=== PATIENT | male | born 1980 | race Caucasian/White ===

== ENCOUNTER 2017-03-09 08:20 | Emergency (ER) | payer SELFPAY ==
[2017-03-09 08:29] VITALS: BP 125/78
[2017-03-09] MEDS ORDERED: Ketorolac INJ* 30 MG/ML 1 ML VIAL IM ONE (08:35)
[2017-03-09] MEDS ORDERED: Amoxicillin PO (*) 250 MG CAP PO ONE (08:36)
[2017-03-09] MEDS ORDERED: Amoxicillin PO (*) 500 MG CAP PO ONE (08:36)
--- NOTE | 2017-03-09 08:41 | UC ---
Ear Complaint HPI - HPI Summary HPI Summary: 36 yo male with recent URI presents with a 12 hr hx or 02/15 right ear pain and decreased hearing no f/c - History of Current Complaint Chief Complaint: UCEar Stated Complaint: EAR PAIN Time Seen by Provider: 03/09/17 08:30 Onset/Duration: Gradual Onset, Lasting Hours Severity Initially: Mild Severity Currently: Severe Pain Intensity: 10 Pain Scale Used: 0-10 Numeric Aggravating Factors: Nothing Alleviating Factors: Nothing Associated Signs/Symptoms: Positive: Hearing Loss, URI Symptoms - Allergies/Home Medications Allergies/Adverse Reactions: Allergies Allergy/AdvReac Type Severity Reaction Status Date / Time No Known Allergies Allergy Verified 03/09/17 08:25 PMH/Surg Hx/FS Hx/Imm Hx Previously Healthy: Yes Cardiovascular History: Hypertension - Surgical History Surgical History: None - Family History Known Family History: Positive: Hypertension - Social History Alcohol Use: Rare Substance Use Type: None Smoking Status (MU): Current Some Day Smoker Type: Smokeless Tobacco Amount Used/How Often: 1 can every 2 days Review of Systems Constitutional: Negative Skin: Negative Eyes: Negative ENT: Ear Ache Respiratory: Negative Cardiovascular: Negative Gastrointestinal: Negative Genitourinary: Negative Motor: Negative Neurovascular: Negative Musculoskeletal: Negative Neurological: Negative Psychological: Negative Is Patient Immunocompromised?: No All Other Systems Reviewed And Are Negative: Yes Physical Exam Triage Information Reviewed: Yes Appearance: Well-Appearing, No Pain Distress, Well-Nourished Vital Signs: Initial Vital Signs Temp 97.9 F 03/09/17 08:26 Pulse 82 03/09/17 08:26 Resp 16 03/09/17 08:26 BP 125/78 03/09/17 08:26 Pulse Ox 100 03/09/17 08:26 Eyes: Positive: Conjunctiva Clear ENT: Positive: TM bulging - R, TM red - R, Uvula midline. Negative: Hearing grossly normal, Nasal congestion, Nasal drainage, Tonsillar swelling, Tonsillar exudate, Muffled voice, Hoarse voice, Dental tenderness, Sinus tenderness Neck: Positive: Supple, Nontender, No Lymphadenopathy Respiratory: Positive: Lungs clear, Normal breath sounds, No respiratory distress, No accessory muscle use Cardiovascular: Positive: No Murmur, Pulses Normal Musculoskeletal: Positive: ROM Intact, No Edema Neurological: Positive: Alert Psychological Exam: Normal Skin Exam: Normal Ear Complaint Course/Dx - Differential Dx/Diagnosis Provider Diagnoses: right otitis media Discharge - Discharge Plan Condition: Stable Disposition: HOME Prescriptions: Amoxicillin PO (*) [Amoxicillin 875 MG (*)] 875 mg PO BID #20 tab Patient Education Materials: Otitis Media (ED) Referrals: Afshin Salomon [Primary Care Provider] - 2 Weeks (if hearing not back to normal ) Additional Instructions: advil or tylenol for pain
== END 2017-03-09 09:00 | disposition home or self-care (01) ==
LOC: UCEAST 08:20
DX: H66.91 Otitis media, unspecified, right ear (principal); F17.290 Nicotine dependence, other tobacco product, uncomplicated
CPT/HCPCS: 96372; 99212; A9270-GY; G0463; J1885

== ENCOUNTER 2017-06-04 18:48 | Emergency (ER) | payer SELFPAY ==
[2017-06-04 19:52] VITALS: BP 130/84
--- NOTE | 2017-06-04 20:07 | UC ---
Complaint Male HPI - HPI Summary HPI Summary: Pt presents with urinary pressure, frequency, and burning for 1 week. He tells me that about 2 weeks ago he and his used a lube during sexual intercourse for the first time and he wonders if this is what is causing his current discomfort. He has tried OTC medication for urinary pain that he says is helping. He also has a scattered rash on his buttocks and upper legs that is itchy - worse at night. He said his work has bed bugs. Denies fever, chills, SOB , chest pain, abdominal pain, n/v/d/c, hematuria, fam hx of prostate or colon cancer, rectal pain/bleeding. He has been monogamous with his and is not interested in STD testing. - History of Current Complaint Chief Complaint: UCGU Stated Complaint: POSS UTI Time Seen by Provider: 06/04/17 20:06 Hx Obtained From: Patient Onset/Duration: Gradual Onset Timing: Constant Severity Initially: Moderate Severity Currently: Moderate Pain Intensity: 7 Pain Scale Used: 0-10 Numeric Aggravating Factor(s): Voiding - Allergies/Home Medications Allergies/Adverse Reactions: Allergies Allergy/AdvReac Type Severity Reaction Status Date / Time HAY FEVER Allergy See Comment Uncoded 06/04/17 19:41 Home Medications: Home Medications Ura Calm 1 tab PO DAILY 06/04/17 [History Confirmed 06/04/17] PMH/Surg Hx/FS Hx/Imm Hx Previously Healthy: Yes Psychological History: Anxiety, Depression - Surgical History Surgical History: None - Family History Known Family History: Positive: Hypertension - Social History Occupation: Employed Full-time Lives: With Family Alcohol Use: Rare Substance Use Type: None Smoking Status (MU): Current Some Day Smoker Type: Cigarettes, Smokeless Tobacco Amount Used/How Often: 1 can every 2 days Review of Systems Constitutional: Negative Skin: Negative Respiratory: Negative Cardiovascular: Negative Gastrointestinal: Negative Genitourinary: Dysuria, Frequency, Urgency Motor: Negative Neurovascular: Negative Musculoskeletal: Negative Neurological: Negative Psychological: Negative All Other Systems Reviewed And Are Negative: Yes Physical Exam Triage Information Reviewed: Yes Appearance: Well-Appearing, No Pain Distress, Well-Nourished Vital Signs: Initial Vital Signs Temp 99.9 F 06/04/17 19:45 Pulse 110 06/04/17 19:45 Resp 16 06/04/17 19:45 BP 130/84 01/27/18 19:45 Pulse Ox 98 06/04/17 19:45 Vital Signs Reviewed: Yes Neck: Positive: Supple, Nontender, No Lymphadenopathy Respiratory: Positive: Lungs clear, Normal breath sounds, No respiratory distress, No accessory muscle use Cardiovascular: Positive: RRR, No Murmur, Pulses Normal Abdomen Description: Positive: Nontender, No Organomegaly, Soft. Negative: CVA Tenderness (R), CVA Tenderness (L), Distended, Guarding, McBurney's Point Tenderness Bowel Sounds: Positive: Present Neurological: Positive: Alert Psychological: Positive: Age Appropriate Behavior Skin: Positive: Other - Diffuse and scattered bite-like appearing excoriations on his upper legs and buttocks. No streaking, discharge, bleeding, or surrounding erythema. Complaint Male Course/Dx - Course Course Of Treatment: UTI - Cipro. Bed bugs - permethrin - Differential Dx/Diagnosis Provider Diagnoses: UTI. Bed bugs Discharge - Discharge Plan Condition: Stable Disposition: HOME Prescriptions: Ciprofloxacin TAB* [Cipro 500 MG TAB*] 500 mg PO BID #20 tab Hydrocortisone 1% CREAM* [Hytone Cream 1%*] 1 applic TOPICAL BID #1 tube Permethrin 5% CREAM* 1 applic TOPICAL SEE INSTRUCTIONS #1 tube Patient Education Materials: Epididymitis (ED), Prostatitis (ED), Urinary Tract Infection in Men (ED) Referrals: Maribel POLLARD,Afshin Torres [Primary Care Provider] - Additional Instructions: If you develop a fever, shortness of breath, chest pain, new or worsening symptoms - please call your PCP or go to the ED. Your blood pressure was mildly elevated at todays visit. Please see your primary provider within 4 weeks for recheck and re-evaluation.
[2017-06-04] MEDS ORDERED: Ciprofloxacin TAB* 500 MG PO ONE (20:24)
== END 2017-06-04 20:36 | disposition home or self-care (01) ==
LOC: UCEAST 18:48
DX: N39.0 Urinary tract infection, site not specified (principal); T14.8XXA Other injury of unspecified body region, initial encounter; W57.XXXA Bitten or stung by nonvenomous insect and other nonvenomous arthropods, initial encounter; Y92.9 Unspecified place or not applicable; F17.220 Nicotine dependence, chewing tobacco, uncomplicated
CPT/HCPCS: 81003; 87086; 99212; A9270-GY; G0463

== ENCOUNTER 2018-01-02 09:12 | Inpatient (IN) | payer SELFPAY ==
--- NOTE | 2018-01-02 09:46 | ED ---
Abdominal Pain/Male - HPI Summary HPI Summary: Pt presents w/ RLQ pain radiating into groin/testicles since last night. Stabbing 8/10 pain. Constant but worse at times. Worse this morning when riding on motorcycle to get to work - hitting bumps in road made it much worse. Standing helps. Nausea from pain - denies vomiting. Feels cold - no fever. Tried to move bowels this morning but had a small loose stool which may have had blood in it (typically moves bowels 3-4 x day w/o difficultly). Mild dysuria - denies frequency/urgency or penile d/c or testicular swelling - admits he's had a "lump" in the RT scrotum since youth - unchanged and non- painful today. May have had some Rt flank pain a few days ago but doesn't recall details. No h/o kidney stone/infection. H/o diverticulitis but was on Lt side last time - feels similar in quality. Otherwise healthy - only takes lexapro. Admits he works alot. Last meal - [employer] energy drink at 7:00am today. Last ate at 18:00 last night. - History of Current Complaint Chief Complaint: EDAbdPain Stated Complaint: ABD PAIN Time Seen by Provider: 01/02/18 09:22 Hx Obtained From: Patient Pain Intensity: 8 - Allergies/Home Medications Allergies/Adverse Reactions: Allergies Allergy/AdvReac Type Severity Reaction Status Date / Time No Known Drug Allergies Allergy See Comment Verified 01/04/18 09:32 HAY FEVER Allergy See Comment Uncoded 01/02/18 09:18 PMH/Surg Hx/FS Hx/Imm Hx Previously Healthy: Yes Endocrine/Hematology History: Denies: Hx Anticoagulant Therapy, Hx Blood Disorders, Hx Diabetes, Hx Thyroid Disease, Autoimmune Disease Cardiovascular History: Denies: Hx Hypertension Respiratory History: Denies: Hx Asthma, Hx Chronic Obstructive Pulmonary Disease (COPD) GI History: Reports: Hx Diverticulosis - diverticulitis Denies: Hx Cirrhosis, Hx Crohn's Disease, Hx Gall Bladder Disease, Hx Gastroesophageal Reflux Disease, Hx Gastrointestinal Bleed, Hx Irritable Bowel, Hx Obstructive Bowel, Hx Ulcer History: Denies: Hx Benign Prostatic Hyperplasia, Hx Kidney Infection, Hx Kidney Stones - Immunization History Date of Tetanus Vaccine: UNK Date of Influenza Vaccine: UNK Infectious Disease History: No Infectious Disease History: Denies: Hx Clostridium Difficile, Hx Hepatitis, Hx Human Immunodeficiency Virus (HIV), Hx of Known/Suspected MRSA - son has hx of, Hx Shingles, Hx Tuberculosis, Hx Known/Suspected VRE, Hx Known/Suspected VRSA, History Other Infectious Disease, Traveled Outside the [place] in Last 30 Days - Family History Known Family History: Positive: Hypertension - Social History Occupation: Employed Full-time Alcohol Use: Weekly Hx Substance Use: No Substance Use Type: Reports: None Hx Tobacco Use: Yes Smoking Status (MU): Current Some Day Smoker Type: Cigarettes, Smokeless Tobacco Amount Used/How Often: 1 can every 2 days Review of Systems Constitutional: Negative Positive: Chills, Fatigue. Negative: Fever Eyes: Negative ENT: Negative Cardiovascular: Negative Negative: Chest Pain Respiratory: Negative Negative: Shortness Of Breath Positive: Abdominal Pain, Diarrhea, Nausea. Negative: Vomiting Positive: see HPI Musculoskeletal: Negative Skin: Negative Neurological: Negative Psychological: Normal - concerned but calm All Other Systems Reviewed And Are Negative: Yes Physical Exam Triage Information Reviewed: Yes Vital Signs On Initial Exam: Initial Vitals Temp Pulse Resp BP Pulse Ox 98.5 F 79 18 142/90 99 01/02/18 09:14 01/02/18 09:14 01/02/18 09:14 01/02/18 09:14 01/02/18 09:14 Vital Signs Reviewed: Yes Appearance: Positive: Well-Appearing - appears older than stated age, Well- Nourished, Pain Distress - lying on stretcher, slow to move - abdominal pain - calm, communicative Skin: Positive: Warm, Skin Color Reflects Adequate Perfusion, Dry - no ecchymosis over ab/flanks Head/Face: Positive: Normal Head/Face Inspection Eyes: Positive: Normal, EOMI, Conjunctiva Clear - anicteric sclera ENT: Positive: Normal ENT inspection, Hearing grossly normal, Pharynx normal - musoca moist Neck: Positive: Supple Respiratory/Lung Sounds: Positive: Clear to Auscultation, Breath Sounds Present. Negative: Rales, Rhonchi, Wheezes Cardiovascular: Positive: Normal, RRR, S1, S2. Negative: Murmur, Rub Abdomen Description: Positive: Soft, Distended - mild, Other: - + Rovsing; RLQ q / mild TTP - no rebounding; + obturator; - psoas. Negative: CVA Tenderness (R) , CVA Tenderness (L) Bowel Sounds: Positive: Present Male Genital Exam: Positive: No Hernia. Negative: Epididymal Tenderness - Rt epididymus w/ soft tissue mass - soft, NTTP, mobile (pt notes this has been there for years), Lesions, Scrotum Tenderness (R), Scrotum Tenderness (L), Testicular Tenderness (R), Testicular Tenderness (L), Urethral Discharge Musculoskeletal: Positive: Normal, Strength/ROM Intact Neurological: Positive: Normal, Sensory/Motor Intact, Alert, Oriented to Person Place, Time, CN Intact II-III Psychiatric: Positive: Normal - calm, pleasant Diagnostics - Vital Signs Vital Signs Temp Pulse Resp BP Pulse Ox 01/02/18 09:14 98.5 F 79 18 142/90 99 - Laboratory Result Diagrams: 01/04/18 06:11 01/04/18 06:11 Lab Statement: Any lab studies that have been ordered have been reviewed, and results considered in the medical decision making process. Re-Evaluation - Re-Evaluation First Eval Change: Improved - minimal but brief improvement of pain w/ 4mg morphine - after reviewing CT scan and finding diverticulitis, will try toradol Second Eval Change: Improved - toradol reduced pain but is still present Abdominal Pain Fem Course/Dx - Course Course Of Treatment: Patient presents with acute abdominal pain, most notably in RLQ however he has had some lower abdominal discomfort and possibly right flank pain the past few days. Reports feeling cold today but no fever/rigors and vitals appear to be WNL upon arrival. Labs reveal elevated wbc at 12 w/ Left shift. Renal and liver function appear well other than elevated alk phos ( RUQ NTTP however CT reveals lesions - recommend outpt U/S for further assessment ). CT also reveals sigmoid diverticulitis w/o urianry tract pathology. After further discussion, pt's "dysuria" sounds like it has more to do with space changes/decompression of bladder w/ void which trigger irritation of inflamed colon. Ordered cipro and flagyl but noticed pt's HR increasing as he was here - requested repeat vitals and pt had developed a fever. He then met sepsis criteria so remaining IV fluids were ordered (he had already received 1L - ordered 1500mL wide open). ALso ordered acetaminophen for temp control and comfort. Discussed case w/ Dr. [place] and pt. Pt looks worse than intial presentation - will admit. - Diagnoses Provider Diagnoses: Sigmoid diverticulitis, Sepsis Discharge - Sign-Out/Discharge Documenting (check all that apply): Patient Departure - Discharge Plan Condition: Stable Disposition: ADMITTED TO [facility] - Billing Disposition and Condition Condition: STABLE Disposition: Admitted to [facility]
[2018-01-02] MEDS ORDERED: Ondansetron INJ* 2 MG/ML VIAL IV ONE (10:18)
[2018-01-02] MEDS ORDERED: Morphine INJ* 2 MG/ML 1 ML SYRINGE (TWO MG - NEW SYRINGE VERSION) IV ONE (10:18)
[2018-01-02] MEDS ORDERED: NS 0.9% 1000 ML* 1,000 ML IV ONE ×2 (10:18→14:58)
[2018-01-02 10:33] LABS: ABS Basophils 0 10^3/ul (0-0.2); ABS Eosinophils 0 10^3/ul (0-0.6); ABS Lymphocytes 0.8 10^3/ul (1.0-4.8); ABS Monocytes 0.7 10^3/ul (0-0.8); ABS Nucleated RBC 0 10^3/ul; Eosinophil % 0.3 % (0-6); Hematocrit 46 % (42-52); Hemoglobin 15.9 g/dl (14.0-18.0); Lymphocyte % 6.5 % (25-47); Mean Corpuscular HGB Conc 35 g/dl (31-36); Mean Corpuscular Hemoglobin 30 pg (27-31); Mean Corpuscular Volume 87 fL (80-94); Mean Platelet Volume 8.2 um3 (7.4-10.4); Nucleated Red Blood Cells % 0; Platelet Count 209 10^3/ul (150-450); Red Cell Distribution Width 14 % (10.5-15); White Blood Count 12.7 10^3/ul (3.5-10.8)
[2018-01-02 10:37] LABS: Urine Appearance Clear; Urine Blood Negative (Negative); Urine Color Yellow; Urine Ketones Negative (Negative); Urine Protein Negative (Negative); Urine Specific Gravity 1.023 (1.010-1.030); Urine Urobilinogen Negative (Negative)
[2018-01-02 10:47] LABS: EGFR Non-African American 93.2 (>60)
--- NOTE | 2018-01-02 12:39 | RAD ---
INDICATION: RIGHT lower abdominal pain radiating to the testicles. History of diverticulitis. Bloody diarrhea this morning. Potential urinary tract stone. History of urolithiasis. COMPARISON: April 11, 2012 CT. TECHNIQUE: Multidetector CT images were obtained from the lung bases to the ischial tuberosities. Oral contrast administered. Assessment of the visceral limited without IV contrast. Multiplanar reformation. REPORT: VISUALIZED INFERIOR THORAX: Mild bibasilar dependent atelectasis. LIVER / GALLBLADDER / PANCREAS / SPLEEN: Approximate 6 well-circumscribed low-density hepatic lesions are identified most suspicious for cysts or hemangiomas with sales representative leather goods dominant lesion at the dome of the LEFT hepatic lobe measuring 0.8 cm. Negative for biliary dilatation. No CT abnormality of the normally distended gallbladder. Unremarkable pancreas. Small calcified granulomas at the 14 cm cephalocaudal spleen. ALIMENTARY TRACT: Negative for CT abnormality of the upper GI, small bowel, or retrocecal appendix. Moderately severe perienteric inflammatory change at the proximal to mid sigmoid colon flanking a few discrete diverticula. No definitive extra enteric gas. Trace fluid along the LEFT pelvic sidewall. No perienteric abscess collection evident. Negative for hernias. MESENTERIC: Unremarkable. ADRENAL / GENITOURINARY: Unremarkable adrenal glands. Negative for urolithiasis or hydronephrosis. Unremarkable unenhanced appearance of the kidneys and ureters. The urinary bladder is largely decompressed limiting assessment without gross abnormality. Symmetric seminal vesicles. RETROPERITONEAL: Negative for lymphadenopathy. VASCULAR: Normal diameter abdominal aorta and iliac arteries. Physiologic distention of the IVC. BONES: Negative for suspicious osseous lesions. SOFT TISSUE: Unremarkable. IMPRESSION: #. The constellation of findings is consistent with acute diverticulitis of the sigmoid colon. Negative for associated bowel obstruction or perienteric abscess. No definitive free air evident. Trace fluid along the LEFT pelvic sidewall. Interval follow-up after therapy suggested to assess for resolution of the presumed inflammatory change. #. Noted multiple relative low suspicion focal hepatic lesions are new compared with the 2012 exam however assessment on both exams is limited due to absence of IV contrast. Suggest nonemergent liver ultrasound follow-up for further assessment. #. Negative for urolithiasis or hydronephrosis. #. Mild splenomegaly without significant change.
[2018-01-02] MEDS ORDERED: Ciprofloxacin 400MG IVPREMIX(* 400 MG/200 ML BAG IVPB ONE (13:17)
[2018-01-02] MEDS ORDERED: metroNIDAZOLE IV 500 MG/100ML* 500 MG/100 ML BAG IVPB ONE (13:21)
[2018-01-02] MEDS ORDERED: Ketorolac INJ* 30 MG/ML 1 ML VIAL IV PUSH ONE (13:35)
[2018-01-02] MEDS ORDERED: Acetaminophen TAB* 325 MG PO ONE (14:57)
[2018-01-02] MEDS ORDERED: Morphine INJ* 2 MG/ML 1 ML SYRINGE (TWO MG - NEW SYRINGE VERSION) IV PRN (17:20)
[2018-01-02] MEDS ORDERED: Ondansetron INJ* 2 MG/ML VIAL IV PRN (17:21)
[2018-01-02] MEDS: NS 0.9% 1000 ML* 1,000 ML IV SCH (18:02)
[2018-01-02] MEDS: Acetaminophen TAB* 325 MG PO PRN (19:06)
[2018-01-02] MEDS ORDERED: metroNIDAZOLE IV 500 MG/100ML* 500 MG/100 ML BAG IVPB SCH (20:00)
[2018-01-02] MEDS: Mouth Piece, Nicotine* 1 EACH CARTRIDGE INH PRN (20:22)
[2018-01-02] MEDS: Nicotine GUM* 2 MG PO PRN (20:22)
[2018-01-02] MEDS: Nicotine Inhaler* 10 MG AMP INH PRN (20:22)
--- NOTE | 2018-01-02 21:13 | HP ---
CC: [facility]I Flores * HISTORY AND PHYSICAL: DATE OF ADMISSION: 01/02/18 PRIMARY CARE PROVIDER: NHI Flores ATTENDING PHYSICIAN: Dr. Emily Bhatti * (dictated by Cynthia Duffy NP) CHIEF COMPLAINT: Right lower abdominal pain. HISTORY OF PRESENT ILLNESS: Mr. Moulton is a 37-year-old male with a past medical history significant for diverticulosis and tobacco abuse, who was in his usual state of health when he developed abdominal discomfort last night. The patient states that the pain was in his right lower quadrant radiating into his groin and testicle overnight. He described it is an 8/10 stabbing pain that was constant, but worse at times. This morning, while riding his motorcycle to work , when hitting the bumps, the pain was worsened. If he stood, the pain improved. He is reporting nausea from the pain, but denied any vomiting. He felt cold, but denied fevers. He had a small loose bowel movement this morning. He typically moves his bowels 3 or 4 times a day. Reported mild dysuria, but denied frequency or urgency, penile discharge or testicular swelling. The patient has a known "lump" in his right testicle since youth that is unchanged and nonpainful. The patient has a history of diverticulitis, but the last time his pain was on the left side but the pain feels similar this time. Due to his symptoms, he presented to the emergency room for further evaluation. While in the emergency room, he had labs remarkable for a white blood cell count of 12.7, negative urinalysis, and EKG showing a sinus tachycardia, rate of 102. Initially, the plan was to treat the patient with a dose of IV Cipro and Flagyl, transition him to oral medications, and send him home. He developed a low-grade fever of 100.9. He was noted to be tachycardic meeting SIRS criteria for sepsis. The patient received 2.5 L of normal saline, Zofran, morphine, Toradol, acetaminophen. Hospitalists were asked to evaluate the patient for admission. PAST MEDICAL HISTORY: 1. Diverticulitis. 2. Depression. PAST SURGICAL HISTORY: None. MEDICATIONS: Home medications include Lexapro 7.5 mg oral daily. ALLERGIES: No known drug allergies. FAMILY HISTORY: Denies any family history of coronary artery disease, diabetes , or cancer. SOCIAL HISTORY: The patient uses half a can of smokeless tobacco a day and smokes up to 6 cigarettes daily. He has a 20-year smoking history. He drinks alcohol in the weekends. He denies recreational drugs. His significant other will be his surrogate decision maker in the event he is unable to make decisions for himself. REVIEW OF SYSTEMS: I performed an 11-point review of systems. All the pertinent positives and negatives are mentioned in the history of present illness. The remaining review of systems is negative. PHYSICAL EXAMINATION GENERAL APPEARANCE: The patient is alert, pleasant, appears to be in no acute distress. VITAL SIGNS: Temperature 100.9, heart rate 101, respiratory rate 14, O2 sat 95 % on room air, blood pressure 114/68. HEENT: Normocephalic, atraumatic. Pupils are equal and reactive to light. Extraocular movements are intact. RESPIRATORY: There is no accessory muscle use. The lungs are clear to auscultation, bilateral. CARDIOVASCULAR: Regular rate and rhythm. S1, S2 present. There are no murmurs , rubs, or gallops heard. ABDOMEN: Soft, nondistended. He has diffuse tenderness, more in the right and left lower quadrants. There are bowel sounds present x4. EXTREMITIES: There is no lower extremity edema. DP and PT pulses are 2+ and symmetric. MUSCULOSKELETAL: There is no clubbing or cyanosis noted. The patient exhibits good strength in all extremities. NEUROLOGICAL: The patient is alert and oriented x4. Cranial nerves II through XII are grossly intact. PSYCHOLOGICAL: The patient is calm and cooperative. SKIN: There are no rashes or abnormalities seen. DIAGNOSTIC STUDIES/LAB DATA: Sodium 136, potassium 4.1, chloride 100, CO2 29, BUN 17, creatinine 0.91, glucose 103. Alk phos 117. CRP 36.84. White blood cell count 12.7, hemoglobin 15.9, hematocrit 46, platelet count 209. Urinalysis negative. EKG shows sinus tachycardia, rate of 102, there are no acute signs of ischemia, no previous EKGs for comparison. Abdomen, pelvis CT from today. Radiologist's impression: The constellation of findings is consistent with acute diverticulitis of the sigmoid colon. Negative for associated bowel obstruction or perienteric abscess. No definitive free air evident. Trace fluid along the left pelvic side wall. Interval followup after therapy is suggested to assess for resolution of the presumed inflammatory change. Noted multiple relative low-suspicion focal hepatic lesions are new compared with the 2012 exam; however, assessment on both exams is limited due to the absence of IV contrast, suggests nonemergent liver ultrasound followup for further assessment. Negative for ureterolysis or hydronephrosis. Mild splenomegaly without significant change. IMPRESSION: Mr. Moulton is a 37-year-old male with a past medical history significant for depression, diverticulosis, who presented to the emergency room with complaints of abdominal pain. He will be admitted as an observation for diverticulitis with associated sepsis. ASSESSMENT/PLAN: 1. Diverticulitis with associated sepsis. The patient is meeting systemic inflammatory response syndrome criteria with tachycardia, leukocytosis, and low - grade fever. He does not have an elevated lactic acid at this time. He has already received a 2.5 L fluid bolus in the ED and will be continues on IV fluids. He will be continued on Cipro and Flagyl. Place him on a clear liquid diet. He will have morphine for pain, Zofran available for nausea. I suspect he will improve and be able to advance his diet and transition to oral medications in the next 1 to 2 days. 2. Hepatic lesions. The patient should have a followup liver ultrasound outpatient. I do not feel that this needs to be done emergently while he is inpatient. 3. Depression. I am going to hold the patient's Lexapro tonight. If he is doing well and tolerating a liquid diet, this can be resumed tomorrow. 4. Fluids, electrolytes, and nutrition. Clear liquid diet. 5. Code status. Full code. 6. DVT prophylaxis. He is a low risk. He will be encouraged to ambulate. If he is unable to ambulate, he should have SCDs. 7. Disposition. Observation. TIME SPENT: Time for this admission was approximately 60 minutes, greater than half of that was spent with the patient and his significant other discussing medications, past medical history, the events leading up to his arrival today, performing a physical examination. The case has been reviewed with the attending, Dr. Bhatti, who agrees with the plan of care. Reviewed by LUCÍA MUSA 01/04/18 1427 [id number]/[facility] #: [id number] KWAME
[2018-01-03] MEDS: Ciprofloxacin 400MG IVPREMIX(* 400 MG/200 ML BAG IVPB SCH ×2 (01:55→15:19)
[2018-01-03] MEDS: metroNIDAZOLE IV 500 MG/100ML* 500 MG/100 ML BAG IVPB SCH ×4 (03:13→21:58)
[2018-01-03] MEDS: Acetaminophen TAB* 325 MG PO PRN ×3 (03:17→23:55)
[2018-01-03] MEDS: NS 0.9% 1000 ML* 1,000 ML IV SCH (04:58)
[2018-01-03 05:54] LABS: ABS Basophils 0 10^3/ul (0-0.2); ABS Eosinophils 0 10^3/ul (0-0.6); ABS Lymphocytes 0.9 10^3/ul (1.0-4.8); ABS Monocytes 0.7 10^3/ul (0-0.8); ABS Neutrophils 8.4 10^3/ul (1.5-7.7); ABS Nucleated RBC 0 10^3/ul; Eosinophil % 0.4 % (0-6); Hematocrit 38 % (42-52); Hemoglobin 13.4 g/dl (14.0-18.0); Lymphocyte % 8.5 % (25-47); Mean Corpuscular HGB Conc 35 g/dl (31-36); Mean Corpuscular Hemoglobin 30 pg (27-31); Mean Corpuscular Volume 87 fL (80-94); Mean Platelet Volume 8.6 um3 (7.4-10.4); Nucleated Red Blood Cells % 0.1; Platelet Count 165 10^3/ul (150-450); Red Cell Distribution Width 13 % (10.5-15)
[2018-01-03] MEDS: Nicotine GUM* 2 MG PO PRN (09:45)
[2018-01-03] MEDS: Mouth Piece, Nicotine* 1 EACH CARTRIDGE INH PRN (09:45)
[2018-01-03] MEDS: Nicotine Inhaler* 10 MG AMP INH PRN ×2 (09:46→13:51)
--- NOTE | 2018-01-03 13:12 | PN ---
Subjective Date of Service: 01/03/18 Interval History: Patient reports he feels a little better than when he came in with less abdominal pain and no fever today but still has RLQ pain, and nausea. Denies fever/chills. No diarrhea or constipation. reports some abdominal bloating and gas Objective Active Medications: Acetaminophen (Tylenol Tab*) 650 mg PO Q4H PRN PRN Reason: FEVER/PAIN Last Admin: 01/03/18 03:17 Dose: 650 mg Device (Nicotine Mouth Piece*) 1 each INH .USE WITH NICOTROL PRN PRN Reason: CRAVING Last Admin: 01/03/18 09:45 Dose: 1 each Ciprofloxacin/Dextrose (Cipro 400 Mg Ivpremix(*)) 400 mg in 200 mls @ 200 mls/ hr IVPB Q12H [facility] Last Admin: 01/03/18 01:55 Dose: 200 mls/hr Sodium Chloride (Ns 0.9% 1000 Ml*) 1,000 mls @ 125 mls/hr IV PER RATE [facility] Last Admin: 01/03/18 04:58 Dose: 125 mls/hr Metronidazole/Sodium Chloride (Flagyl 500 Mg Ivpb*) 500 mg in 100 mls @ 100 mls /hr IVPB 0300,0900,1500,2100 [facility] Last Admin: 01/03/18 09:36 Dose: 100 mls/hr Morphine Sulfate (Morphine Inj ((Syringe))*) 2 mg IV Q4H PRN PRN Reason: PAIN Last Admin: 01/02/18 20:28 Dose: 2 mg Nicotine (Nicotine Inhaler*) 10 mg INH Q2H PRN PRN Reason: CRAVING Last Admin: 01/03/18 09:46 Dose: 10 mg Nicotine Polacrilex (Nicotine Gum*) 2 mg PO Q2H PRN PRN Reason: CRAVING Last Admin: 01/03/18 09:45 Dose: 2 mg Ondansetron HCl (Zofran Inj*) 4 mg IV Q6H PRN PRN Reason: NAUSEA Vital Signs - 8 hr 01/03/18 01/03/18 01/03/18 07:51 07:53 11:12 Temperature 98.7 F 98.9 F Pulse Rate 78 80 Respiratory 18 16 18 Rate Blood Pressure 104/63 130/64 (mmHg) O2 Sat by Pulse 97 100 Oximetry Oxygen Devices in Use Now: None Appearance: 37 yo male laying in bed in NAD, A+O x3 Eyes: No Scleral Icterus, PERRLA Ears/Nose/Mouth/Throat: NL Teeth, Lips, Gums, Clear Oropharnyx, Mucous Membranes Moist Neck: NL Appearance and Movements; NL JVP Respiratory: Symmetrical Chest Expansion and Respiratory Effort, Clear to Auscultation Cardiovascular: NL Sounds; No Murmurs; No JVD, RRR, No Edema Abdominal: - - soft, nondistended, RLQ tenderness, no guarding Extremities: No Edema, No Clubbing, Cyanosis Skin: No Rash or Ulcers, No Nodules or Sclerosis Neurological: Alert and Oriented x 3, NL Sensation, NL Gait, NL Muscle Strength and Tone Lines/Tubes/Other Access: Clean, Dry and Intact Peripheral IV Nutrition: Taking PO's Result Diagrams: 01/03/18 04:52 01/02/18 10:03 Assess/Plan/Problems-Billing Assessment: 37 yo male with a PMH significant for depression, hx diverticulosis , IBS who presented to the ER with c/o abdominal pain found to have diverticulitis and met criteria for sepsis - Patient Problems (1) Sepsis Comment: Resolved. Clinically improving but continues to have RLQ pain Secondary to diverticulitis - CT showing acute diverticulilitis of the sigmoid colon Continue Cipro/Flagyl (2) Hepatic lesion Comment: incidental finding on CT will need outpt referral for liver US (3) Tobacco abuse Comment: smoking cessation tobacco replacement (4) DVT prophylaxis Comment: ambulation (5) Full code status Status and Disposition: switch to inpatient for continued IV abx. Tenative DC tomorrow
[2018-01-03] MEDS ORDERED: Loperamide CAP* 2 MG PO PRN (22:57)
[2018-01-03] MEDS: Simethicone TAB* 80 MG TAB.CHEW PO PRN (23:55)
[2018-01-04] MEDS: Ciprofloxacin 400MG IVPREMIX(* 400 MG/200 ML BAG IVPB SCH (01:41)
[2018-01-04] MEDS: metroNIDAZOLE IV 500 MG/100ML* 500 MG/100 ML BAG IVPB SCH ×2 (03:16→08:58)
[2018-01-04 06:17] LABS: ABS Basophils 0 10^3/ul (0-0.2); ABS Eosinophils 0.2 10^3/ul (0-0.6); ABS Lymphocytes 1.2 10^3/ul (1.0-4.8); ABS Monocytes 0.4 10^3/ul (0-0.8); ABS Neutrophils 5.2 10^3/ul (1.5-7.7); ABS Nucleated RBC 0 10^3/ul; Eosinophil % 2.6 % (0-6); Hematocrit 38 % (42-52); Hemoglobin 13.3 g/dl (14.0-18.0); Lymphocyte % 16.5 % (25-47); Mean Corpuscular HGB Conc 35 g/dl (31-36); Mean Corpuscular Hemoglobin 30 pg (27-31); Mean Corpuscular Volume 87 fL (80-94); Mean Platelet Volume 8.1 um3 (7.4-10.4); Nucleated Red Blood Cells % 0; Platelet Count 162 10^3/ul (150-450); Red Cell Distribution Width 13 % (10.5-15)
[2018-01-04 06:36] LABS: EGFR Non-African American 103.7 (>60)
[2018-01-04 08:32] VITALS: BP 106/64
[2018-01-04] MEDS: Simethicone TAB* 80 MG TAB.CHEW PO PRN (09:06)
--- NOTE | 2018-01-04 09:08 | DCNOTE ---
Subjective Date of Service: 01/04/18 Interval History: Patient reports he feels much much better and would like to go home. He reports his abdominal discomfort is no 1/10 with some mild RLQ tenderness. Tolerated diet well. No N/V. Some noted loose stool described as mild but has not noted any blood. Inquired about healthy diet, plans to f/u with PCP and GI as outpatient - discussed noted liver lesions and will require ultrasound as outpt. Objective Active Medications: Acetaminophen (Tylenol Tab*) 650 mg PO Q4H PRN PRN Reason: FEVER/PAIN Last Admin: 01/03/18 23:55 Dose: 650 mg Device (Nicotine Mouth Piece*) 1 each INH .USE WITH NICOTROL PRN PRN Reason: CRAVING Last Admin: 01/03/18 09:45 Dose: 1 each Ciprofloxacin/Dextrose (Cipro 400 Mg Ivpremix(*)) 400 mg in 200 mls @ 200 mls/ hr IVPB Q12H [facility] Last Admin: 01/04/18 01:41 Dose: 200 mls/hr Metronidazole/Sodium Chloride (Flagyl 500 Mg Ivpb*) 500 mg in 100 mls @ 100 mls /hr IVPB 0300,0900,1500,2100 [facility] Last Admin: 01/04/18 08:58 Dose: 100 mls/hr Loperamide HCl (Imodium Cap*) 2 mg PO Q3H PRN PRN Reason: DIARRHEA Last Admin: 01/03/18 23:51 Dose: 2 mg Morphine Sulfate (Morphine Inj ((Syringe))*) 2 mg IV Q4H PRN PRN Reason: PAIN Last Admin: 01/02/18 20:28 Dose: 2 mg Nicotine (Nicotine Inhaler*) 10 mg INH Q2H PRN PRN Reason: CRAVING Last Admin: 01/03/18 13:51 Dose: 10 mg Nicotine Polacrilex (Nicotine Gum*) 2 mg PO Q2H PRN PRN Reason: CRAVING Last Admin: 01/03/18 09:45 Dose: 2 mg Ondansetron HCl (Zofran Inj*) 4 mg IV Q6H PRN PRN Reason: NAUSEA Last Admin: 01/03/18 16:12 Dose: 4 mg Simethicone (Mylicon Tab*) 80 mg PO Q6H PRN PRN Reason: INDIGESTION Last Admin: 01/03/18 23:55 Dose: 80 mg Vital Signs - 8 hr 01/04/18 01/04/18 01/04/18 03:16 04:43 07:14 Temperature 98.1 F 98.6 F Pulse Rate 59 69 Respiratory 14 16 16 Rate Blood Pressure 102/62 106/64 (mmHg) O2 Sat by Pulse 97 97 Oximetry Oxygen Devices in Use Now: None Appearance: well developed 37 yo male laying in bed in NAD A+O x3 Eyes: No Scleral Icterus, PERRLA Ears/Nose/Mouth/Throat: NL Teeth, Lips, Gums, Mucous Membranes Moist Neck: NL Appearance and Movements; NL JVP Respiratory: Symmetrical Chest Expansion and Respiratory Effort, Clear to Auscultation Cardiovascular: NL Sounds; No Murmurs; No JVD, RRR, No Edema Abdominal: - - soft, nondistended, mild tenderness in RLQ - no guarding. Extremities: No Edema, No Clubbing, Cyanosis Skin: No Rash or Ulcers, No Nodules or Sclerosis Neurological: Alert and Oriented x 3, NL Sensation, NL Gait, NL Muscle Strength and Tone Lines/Tubes/Other Access: Clean, Dry and Intact Peripheral IV Nutrition: Taking PO's Result Diagrams: 01/04/18 06:11 01/04/18 06:11 Assess/Plan/Problems-Billing Assessment: 37 yo male with a PMH significant for depression, hx diverticulosis , IBS who presented to the ER with c/o abdominal pain found to have diverticulitis and met criteria for sepsis - Patient Problems (1) Sepsis Comment: Resolved. Clinically improving but continues to have RLQ pain Secondary to diverticulitis - CT showing acute diverticulilitis of the sigmoid colon Continue Cipro/Flagyl as outpatient follow up with PCP this week and GI as outpatient (2) Hepatic lesion Comment: incidental finding on CT - discussed with pt & will need outpt referral for liver US (3) Tobacco abuse Comment: smoking cessation tobacco replacement (4) DVT prophylaxis Comment: ambulation (5) Full code status Status and Disposition: plan for DC to home
[2018-01-04] MEDS ORDERED: Ciprofloxacin TAB* 500 MG PO ONE (11:00)
--- NOTE | 2018-01-04 19:54 | DS ---
CC: [facility] Flores * DISCHARGE SUMMARY: DATE OF ADMISSION: 01/02/18 DATE OF DISCHARGE: 01/04/18 PROVIDER: Ricco Bucio NP ATTENDING PHYSICIAN: Dr. Harper * (report dictated by Ricco Bucio NP) PRIMARY CARE PROVIDER: [facility] Flores DISCHARGE DIAGNOSIS: Acute diverticulitis with sepsis. SECONDARY DIAGNOSES: 1. Tobacco abuse 2. History of diverticulitis, diverticulosis. HISTORY OF PRESENT ILLNESS AND HOSPITAL COURSE: Please see history and physical by Cynthia Arana for full admission details but in summary, this is a 37- year-old male who presented to the emergency department on with complaint for abdominal discomfort starting the night prior, reporting right lower quadrant pain radiating into his groin and testicle overnight, describing an 8/10 stabbing pain that was constant. He also reported nausea from the pain but denied any vomiting. He denied any fevers or chills. He did report of loose bowel movement that morning. In the emergency department, he was found to have an abdominal pelvis CAT scan and impression showing "the constellations of findings were consistent with acute diverticulitis of the sigmoid colon. Negative for associated bowel obstruction or perienteric abscess. No definite free air evident. Trace fluid along the left pelvic sidewall. Interval followup after therapy is suggested to assess for resolution of the presumed inflammatory change. Noted multiple relative low suspicion for focal hepatic lesions are new compared to the 2012 exam; however, assessment of both exams is limited due to the absence of IV contrast, suggest nonemergent liver ultrasound and followup for further assessment. Negative for or hydronephrosis. Mild splenomegaly without significant change." The patient was admitted to the surgical unit where he was started on IV Flagyl and ciprofloxacin. He has dramatically improved over his hospital course and is stable for discharge home this morning. The patient is asking for discharge home reporting that his pain is much decreased to the right lower quad but still does have some mild noted pain in that right lower quad. He reports some loose stool but denies any bloody bowel movements. He has been tolerating his diet well and will be discussed on discharge to slowly advance his diet starting with soft foods, also along with cooked rice and cooked vegetables. We discussed worsening signs and symptoms and when to return to the emergency department. The patient initially presented with leukocytosis of 12.7, which resolved the day after admission. His initial CRP was 36.84 elevating to 208 today. However , on clinical exam and evaluation, he is much improved over his hospital course and there is no reason to keep him hospitalized. He will continue on oral ciprofloxacin and Flagyl for another 8 days to continue a total course of 10 days. I have discussed with the patient to follow up with his primary care provider at the end of the week and have follow up labs and if he has any worsening signs and symptoms to return to the emergency department. The patient should follow up with customer project manager, Dr. Mccurdy as an outpatient as he will benefit from a colonoscopy. As well, he will need an outpatient liver ultrasound to evaluate the hepatic lesions that were noted on the ultrasound. I have ordered a followup CBC with auto diff, CRP, and a CMP. Please note that his alkaline phosphatase is mildly elevated and this should be followed up on. Otherwise, the patient's labs are unremarkable. He has had a little drop in his hemoglobin and hematocrit since admission of being 15.9 and 46 to 13.3 and 38; however, most likely this is secondary to dilution from IV fluids. His liver enzymes are normal. The patient and I discussed at length healthy diet as well as smoking cessation and he shows interest in changing his dietary habits. DISCHARGE PLAN: 1. Follow up with PCP this week. 2. Follow up with Dr. Mccurdy within 1 month or earliest available appointment for possible colonoscopy. 3. Follow up liver ultrasound as an outpatient to evaluate hepatic lesions noted on the CT scan. 4. As well, the radiologist did recommend a followup CAT scan of his abdomen to evaluate the inflammatory changes; however, this could be considered in discussion with a customer project manager during followup. 5. Labs to be drawn in 2 to 3 days of CBC with auto diff, CMP, and CRP with results to primary care provider. The patient is stable for discharge. TIME SPENT: Approximately 60 minutes were spent on this discharge. RICCO BUCIO NP [id number]/[facility] #: [id number] KWAME
== END 2018-01-04 11:10 | disposition home or self-care (01) | DRG 872 ==
LOC: ED 09:12 → SSU 16:33 → OBSVTOIN 01-03 14:18
PROVIDERS: ADMIT Internal Medicine; ATTEND Hospitalist
DX: A41.9 Sepsis, unspecified organism (principal); K57.32 Diverticulitis of large intestine without perforation or abscess without bleeding; F17.210 Nicotine dependence, cigarettes, uncomplicated; F32.9 Major depressive disorder, single episode, unspecified; K76.9 Liver disease, unspecified; K58.9 Irritable bowel syndrome, unspecified; R16.1 Splenomegaly, not elsewhere classified; Z72.89 Other problems related to lifestyle; Z82.49 Family history of ischemic heart disease and other diseases of the circulatory system
CPT/HCPCS: 36415; 74176; 80048; 80053; 81003; 83605; 83690; 83735; 85025; 86140; 93005; 99284; 99406; A9270-GY; G0378; J0744; J1885; J2270; J2405; J3490

== ENCOUNTER → 2018-09-11 09:57 | Emergency (ER) | payer SELFPAY ==
[~2018-09-11 09:57] MED LIST: Iohexol 300* (CONTRAST) 10 ML SDV IV ONE; Morphine 4 MG/ML VIAL (1 ml) 4 MG/ML VIAL IV ONE; NS 0.9% 1000 ML** 1,000 ML IV ONE; Ondansetron INJ* 2 MG/ML VIAL IV ONE
--- NOTE | 2018-09-11 11:16 | ED ---
Abdominal Pain/Male - HPI Summary HPI Summary: Patient is a 38 y/o M presenting to ED with complaints of lower abdominal pain for the past few weeks with exacerbation and onset of radiation of pain to back yesterday. He endorses some dysuria but denies N/V/D, fever, chills and constipation in the room. However, he endorses increased frequency of bowel movements. PMHx of diverticulitis, he states that he has 3-4 episodes per year. He is a current smoker, reports rare alcohol usage, and endorse marijuana usage. PMHx of anxiety, No PSHx. FMHx of HTN and cardiac disease. On triage, pain is rated 8/10, nothing is noted to aggravate/alleviate Sx. Home medications and allergies are reviewed. - History of Current Complaint Chief Complaint: EDAbdPain Stated Complaint: DIVERTICULITIS PER PT Hx Obtained From: Patient Onset/Duration: Lasting Weeks, Still Present, Worse Since - yesterday Timing: Constant, Lasting Weeks Severity Initially: Moderate Severity Currently: Severe Pain Intensity: 8 Pain Scale Used: 0-10 Numeric - 8/10 Location: Other - lower abdomen Radiates: Yes Radiates to: Back Aggravating Factor(s): Nothing Alleviating Factor(s): Nothing Associated Signs And Symptoms: Positive: Urinary Symptoms - dysuria, Other - NEGATIVE - CHILLS; POSITIVE - INCREASED FREQUENCY OF BOWEL MOVEMENTS. Negative : Fever, Constipation, Nausea, Vomiting, Diarrhea - Allergies/Home Medications Allergies/Adverse Reactions: Allergies Allergy/AdvReac Type Severity Reaction Status Date / Time No Known Drug Allergies Allergy See Comment Verified 01/04/18 09:32 HAY FEVER Allergy See Comment Uncoded 01/02/18 09:18 Home Medications: Home Medications Escitalopram * [Lexapro 10 mg (NF)] 15 mg PO DAILY 09/11/18 [History Confirmed 09/11/18] PMH/Surg Hx/FS Hx/Imm Hx Endocrine/Hematology History: Denies: Hx Anticoagulant Therapy, Hx Blood Disorders, Hx Diabetes, Hx Thyroid Disease Cardiovascular History: Reports: Other Cardiovascular Problems/Disorders - "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 heartbeat doesn't stay regular" Denies: Hx Hypertension Respiratory History: Denies: Hx Asthma, Hx Chronic Obstructive Pulmonary Disease (COPD) GI History: Reports: Hx Diverticulosis - diverticulitis Denies: Hx Cirrhosis, Hx Crohn's Disease, Hx Gall Bladder Disease, Hx Gastroesophageal Reflux Disease, Hx Gastrointestinal Bleed, Hx Irritable Bowel, Hx Obstructive Bowel, Hx Ulcer History: Denies: Hx Benign Prostatic Hyperplasia, Hx Kidney Infection, Hx Kidney Stones Sensory History: Denies: Hx Contacts or Glasses, Hx Hearing Aid Opthamlomology History: Denies: Hx Contacts or Glasses Psychiatric History: Reports: Hx Anxiety - Immunization History Date of Tetanus Vaccine: UNK Date of Influenza Vaccine: UNK Infectious Disease History: No Infectious Disease History: Denies: Hx Clostridium Difficile, Hx Hepatitis, Hx Human Immunodeficiency Virus (HIV), Hx of Known/Suspected MRSA - son has hx of, Hx Shingles, Hx Tuberculosis, Hx Known/Suspected VRE, Hx Known/Suspected VRSA, History Other Infectious Disease, Traveled Outside the [place] in Last 30 Days - Family History Known Family History: Positive: Cardiac Disease, Hypertension - Social History Alcohol Use: Weekly Alcohol Amount: "on the weekends, but not a lot" - pt confirms ~a six-pack on weekends Hx Substance Use: No Substance Use Type: Reports: Marijuana Substance Use Comment - Amount & Last Used: "I smoked a little bit this last weekend for the first time since my teens" Hx Tobacco Use: Yes Smoking Status (MU): Current Some Day Smoker Type: Cigarettes, Smokeless Tobacco Amount Used/How Often: 1 can every 2 days Have You Smoked in the Last Year: Yes Review of Systems Negative: Fever, Chills Positive: Abdominal Pain. Negative: Vomiting, Diarrhea, Nausea Genitourinary: Other - NEGATIVE - CONSTIPATION Positive: dysuria, frequency - INCREASED FREQUENCY OF BOWEL MOVEMENTS All Other Systems Reviewed And Are Negative: Yes Physical Exam - Summary Physical Exam Summary: VITAL SIGNS: Reviewed. GENERAL: Patient is a well-developed and nourished male who is lying comfortable in the stretcher. Patient is not in any acute respiratory distress. HEAD AND FACE: No signs of trauma. No ecchymosis, hematomas or skull depressions. No sinus tenderness. EYES: PERRLA, EOMI x 2, No injected conjunctiva, no nystagmus. EARS: Hearing grossly intact. Ear canals and tympanic membranes are within normal limits. MOUTH: Oropharynx within normal limits. NECK: Supple, trachea is midline, no adenopathy, no JVD, no carotid bruit, no c- spine tenderness, neck with full ROM. CHEST: Symmetric, no tenderness at palpation LUNGS: Clear to auscultation bilaterally. No wheezing or crackles. CVS: Regular rate and rhythm, S1 and S2 present, no murmurs or gallops appreciated. ABDOMEN: Soft, LLQ tenderness. No signs of distention. No rebound no guarding, and no masses palpated. Bowel sounds are normal. EXTREMITIES: FROM in all major joints, no edema, no cyanosis or clubbing. NEURO: Alert and oriented x 3. No acute neurological deficits. Speech is normal and follows commands. SKIN: Dry and warm Triage Information Reviewed: Yes Vital Signs On Initial Exam: Initial Vitals Temp Pulse Resp BP Pulse Ox 98.6 F 77 16 143/85 98 09/11/18 10:15 09/11/18 10:15 09/11/18 10:15 09/11/18 10:15 09/11/18 10:15 Vital Signs Reviewed: Yes Diagnostics - Vital Signs Vital Signs Temp Pulse Resp BP Pulse Ox 09/11/18 10:15 98.6 F 77 16 143/85 98 - Laboratory Result Diagrams: 09/11/18 11:21 09/11/18 11:24 Lab Statement: Any lab studies that have been ordered have been reviewed, and results considered in the medical decision making process. - CT abd/pel ct CT Interpretation Completed By: Radiologist Summary of CT Findings: IMPRESSION: #. Unchanged small hepatic cysts. #. Mild splenomegaly and small calcified splenic granulomas without change. #. Moderate colonic diverticulosis without findings of acute diverticulitis. Normal. appendix documented. This report was reviewed by Dr. Villatoro. Re-Evaluation - Re-Evaluation First Eval Re-Evaluation Time: 14:13 Comment: I discussed all the findings and test results with the patient. Patient was instructed to return to the emergency room immediately if any of the symptoms return worsens. Plan of care was discussed with the patient and understands and agrees. Abdominal Pain Male Course/Dx - Course Assessment/Plan: This patient is a 38-year-old male who presents to the emergency department with a chief complaint of abdominal pain which is similar pain as when he has been diagnosed with acute diverticulitis. The patient also has some dysuria for the last couple days. The pain is 8 out of 10 and the patient is not experiencing nausea vomiting or diarrhea. In the ED course we obtained an IV accesses, the patient was given IV fluids, Zofran and morphine for pain. Blood test results without any significant abnormality. Urinalysis is negative for UTI. Abdominopelvic CT IMPRESSION: #. Unchanged small hepatic cysts. #. Mild splenomegaly and small calcified splenic granulomas without change. #. Moderate colonic diverticulosis without findings of acute diverticulitis. Normal. appendix documented. Since the patient has normal WBCs , the CRP is normal, the urine shows no UTI and the abdominopelvic CT shows no diverticulitis the patient will be discharged home with a prescription for pain medications. I discussed all the findings and test results with the patient. Patient was instructed to return to the emergency room immediately if any of the symptoms return worsens. Plan of care was discussed with the patient and understands and agrees. - Diagnoses Provider Diagnoses: Lower abdominal pain Discharge - Sign-Out/Discharge Documenting (check all that apply): Patient Departure - discharge Patient Received Moderate/Deep Sedation with Procedure: No - Discharge Plan Condition: Stable Disposition: HOME Prescriptions: HYDROcodone/ACETAMIN 5-325 MG* [[place] 5-325 TAB*] 1 tab PO Q6H PRN #10 tab MDD 4 PRN Reason: Pain Ibuprofen TAB* [Motrin TAB* 600 MG] 600 mg PO Q8H PRN #20 tab PRN Reason: Pain Patient Education Materials: Abdominal Pain (ED) Referrals: Maribel POLLARD,Afshin Torres [Primary Care Provider] - 3 Days Additional Instructions: RETURN TO ED FOR ANY NEW OR WORSENING SYMPTOMS. FOLLOW UP WITH YOUR PRIMARY CARE PHYSICIAN WITHIN THREE DAYS. - Billing Disposition and Condition Condition: STABLE Disposition: Home - Attestation Statements Document Initiated by Walker: Yes Documenting Scribe: CLOVIS YANEZ Provider For Whom Walker is Documenting (Include Credential): RUSSEL VILLATORO MD Scribe Attestation: CLOVIS Rogel scribed for RUSSEL VILLATORO MD on 09/12/18 at 1050. Scribe Documentation Reviewed: Yes Provider Attestation: The documentation as recorded by the CLOVIS white accurately reflects the service I personally performed and the decisions made by me, RUSSEL VILLATORO MD Status of Scribe Document: Viewed
[2018-09-11 11:44] LABS: ABS Eosinophils 0.1 10^3/ul (0-0.6); ABS Lymphocytes 1.6 10^3/ul (1.0-4.8); ABS Monocytes 0.4 10^3/ul (0-0.8); ABS Neutrophils 6.1 10^3/ul (1.5-7.7); Eosinophil % 0.7 %; Hematocrit 47 % (42-52); Hemoglobin 15.9 g/dL (14.0-18.0); Lymphocyte % 19.7 %; Mean Corpuscular HGB Conc 34 g/dL (31-36); Mean Corpuscular Hemoglobin 30 pg (27-31); Mean Corpuscular Volume 87 fL (80-94); Mean Platelet Volume 8.2 fL (7.4-10.4); Nucleated Red Blood Cells % 0.1; Platelet Count 237 10^3/uL (150-450); Red Blood Count 5.39 10^6 /uL (4.18-5.48); Red Cell Distribution Width 14 % (10.5-15); White Blood Count 8.3 10^3/uL (3.5-10.8)
[2018-09-11 12:01] LABS: Albumin 4.4 g/dL (3.2-5.2); Albumin/Globulin Ratio 1.6 (1-3); BUN/Creatinine Ratio 21.6 (8-20); C Reactive Protein 7.92 mg/L (<8.01); Calcium 9.9 mg/dL (8.6-10.3); EGFR African American 116.7 (>60); EGFR Non-African American 96.4 (>60); Globulin 2.7 g/dL (2-4); Total Bilirubin 0.4 mg/dL (0.2-1.0); Total Protein 7.1 g/dL (6.4-8.9)
[2018-09-11 12:37] LABS: Urine Appearance Clear; Urine Bilirubin Negative (Negative); Urine Blood Negative (Negative); Urine Color Yellow; Urine Glucose Negative (Negative); Urine Ketones Negative (Negative); Urine Nitrite Negative (Negative); Urine Protein Negative (Negative); Urine Urobilinogen Negative (Negative)
[2018-09-11 14:25] VITALS: BP 126/84
== END | disposition home or self-care (01) ==
LOC: ED 09:57
DX: R10.30 Lower abdominal pain, unspecified (principal); R16.1 Splenomegaly, not elsewhere classified; K57.90 Diverticulosis of intestine, part unspecified, without perforation or abscess without bleeding; F41.9 Anxiety disorder, unspecified; F17.210 Nicotine dependence, cigarettes, uncomplicated
CPT/HCPCS: 36415; 74177; 80053; 81003; 82150; 83605; 83690; 85025; 86140; 87491; 87591; 96361; 96374; 96375; 99283; J2270; J2405; Q9967

== ENCOUNTER 2019-05-11 19:26 | Emergency (ER) | payer BC ==
[2019-05-11] MEDS ORDERED: Tetan/Diph/Pertus SYR(Tdap)* 0.5 ML SYR(BOOSTRIX) use SYR contains LATEX IM ONE (19:32)
--- NOTE | 2019-05-11 19:34 | UC ---
Laceration HPI - HPI Summary HPI Summary: 38 yo male presents with finger laceration. 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 He rinsed the area and applied neosporin and continued working. Since that time the are has still been oozing blood and not closing - he is concerned he needs sutures. He is right handed. Unsure date of last tetanus. - History Of Current Complaint Stated Complaint: FINGER LAC Time Seen by Provider: 05/11/19 19:33 Hx Obtained From: Patient Laceration Location: Finger Mechanism Of Injury: Sharp Trauma Onset/Duration: Sudden Onset Severity: Mild Pain Intensity: 3 Pain Scale Used: 0-10 Numeric - Allergies/Home Medications Allergies/Adverse Reactions: Allergies Allergy/AdvReac Type Severity Reaction Status Date / Time No Known Drug Allergies Allergy See Comment Verified 05/11/19 19:45 HAY FEVER Allergy See Comment Uncoded 01/02/18 09:18 Home Medications: Home Medications Azithromyxin NORA (NF) [Z-Nora (Zithromax) 250 mg tabs #6] 250 mg PO DAILY [History Confirmed 05/11/19] PMH/Surg Hx/FS Hx/Imm Hx Psychological History: Anxiety, Depression Other History Of: Negative For: Anticoagulant Therapy - Surgical History Surgical History: None - Family History Known Family History: Positive: Cardiac Disease, Hypertension - Social History Lives: With Family Alcohol Use: Weekly Alcohol Amount: "on the weekends, but not a lot" - pt confirms ~a six-pack on weekends Substance Use Type: Marijuana Substance Use Comment - Amount & Last Used: "I smoked a little bit this last weekend for the first time since my teens" Smoking Status (MU): Current Some Day Smoker Type: Cigarettes, Smokeless Tobacco Amount Used/How Often: 1 can every 2 days Have You Smoked in the Last Year: Yes Household Exposure Type: Cigarettes - Immunization History Most Recent Influenza Vaccination: 2017 Most Recent Pneumonia Vaccination: never Review of Systems All Other Systems Reviewed And Are Negative: No Constitutional: Positive: Negative Skin: Positive: Other - Finger laceration Respiratory: Positive: Negative Cardiovascular: Positive: Negative Neurovascular: Positive: Negative Musculoskeletal: Positive: Negative Neurological: Positive: Negative Psychological: Positive: Negative Physical Exam - Summary Physical Exam Summary: GENERAL: NAD. WDWN. No pain distress. SKIN: RIGHT RING FINGER: medial aspect of the PIP with 1.0cm crescent shaped laceration. No tendon or bony involvement. Mild active bleeding. Scant debris within. CHEST: No accessory muscle use. Breathing comfortably and in no distress. CV: Pulses intact. Cap refill <2seconds MSK: FROM right ring finger MCP, PIP, and DIP NEURO: Alert. PSYCH: Age appropriate behavior. Triage Information Reviewed: Yes Vital Signs: Vital Signs: Temp Pulse Resp BP Pulse Ox 99.8 F 88 16 132/89 98 05/11/19 19:39 05/11/19 19:39 05/11/19 19:39 05/11/19 19:39 05/11/19 19:39 Vital Signs Reviewed: Yes Laceration Repair - Laceration Repair 1 Description: Irregular Laceration Size After Repair: Length (cm) - 1.0 Modified For Repair: No Anesthesia Used: 2.0% Lido Irrigation With Pressure Irrigation Device: Yes Closure Material: Sutures - #3 Closure Method: Single Layer Suture Of: Skin Suture Type: Prolene - 5-0 Laceration Course/Dx - Course/Dx Course Of Treatment: The procedure was explained to the pt and all questions were answered. A time out was performed, witnessed, and signed. The area was irrigated with 100mL sterile saline. 1mL of 2% lidocaine without epi was administered and good anesthetization was achieved. In the usual sterile fashion, THREE 5-0 prolene interrupted sutures were placed. Homeostasis achieved. The wound was bandaged with a band-aid . Pt tolerated procedure well. tdap updated today - Diagnosis Provider Diagnosis: Finger laceration Discharge ED - Sign-Out/Discharge Documenting (check all that apply): Patient Departure All imaging exams completed and their final reports reviewed: No Studies - Discharge Plan Condition: Stable Disposition: HOME Prescriptions: Cephalexin CAP* [Keflex CAP*] 500 mg PO TID #15 cap Patient Education Materials: Care For Your Stitches (ED), Finger Laceration (ED ) Referrals: Afshin López PA [Primary Care Provider] - Additional Instructions: 1) Please keep the area bandage, clean, dry, and intact for the next 24- 48hours. Then change the bandage daily until sutures are removed. 2) If you develop a fever, colored or thick discharge, increased pain or swelling - please call your PCP or return for a wound check. 3) Please return in 10-12 days to have your THREE sutures removed. Your tetanus shot was updated today. Please take the antibiotic as directed - Billing Disposition and Condition Condition: STABLE Disposition: Home
[2019-05-11] MEDS ORDERED: Lidocaine 2% PF * 5 ML VIAL INJ ONE (19:38)
[2019-05-11 19:45] VITALS: BP 132/89
== END 2019-05-11 20:26 | disposition home or self-care (01) ==
LOC: UCEAST 19:26
DX: S61.214A Laceration without foreign body of right ring finger without damage to nail, initial encounter (principal); F17.210 Nicotine dependence, cigarettes, uncomplicated; W26.8XXA Contact with other sharp object(s), not elsewhere classified, initial encounter; Y93.D2 Activity, sewing; Y92.009 Unspecified place in unspecified non-institutional (private) residence as the place of occurrence of the external cause; Z91.09 Other allergy status, other than to drugs and biological substances
CPT/HCPCS: 12031; 90471; 90715; 99212; G0463

== ENCOUNTER 2019-07-26 07:34 | Emergency (ER) | payer BC ==
[2019-07-26 07:57] VITALS: BP 136/95
--- NOTE | 2019-07-26 08:19 | UC ---
FLU HPI - HPI Summary HPI Summary: CHIEF COMPLAINT: cough, chest tightness, for 1-2 days; smoker; no fever; had influenza, he thinks, that ended 3 weeks ago; and members of the family are ill with influenza like symptoms currently. HPI: This is a healthy 39 year old smoker; cough, chest tightness, for 1-2 days; smoker; no fever; had influenza, he thinks, that ended 3 weeks ago; and members of the family are ill with influenza like symptoms currently. Description of Pain: none VITAL SIGNS REVIEWED. Within normal limits unless noted here. 136/95 NURSES NOTE REVIEWED. " pt had flu a week ago, pt works with dust, now feeling chest tightness, cough, starting this morning. he felt congestion in his chest. he is unsure if he has had a fever, but has been on ibuprofen. - History of Current Complaint Stated Complaint: RESPIRATORY COMPLAINT Time Seen by Provider: 07/26/19 07:50 Hx Obtained From: Patient - Allergy/Home Medications Allergies/Adverse Reactions: Allergies Allergy/AdvReac Type Severity Reaction Status Date / Time milk Allergy GI Upset Verified 07/26/19 07:57 HAY FEVER Allergy See Comment Uncoded 07/26/19 07:57 Home Medications: Home Medications Ibuprofen TAB* [Motrin TAB* 600 MG] 600 mg PO Q8H PRN #20 tab 09/11/18 [Rx Confirmed 07/26/19] Albuterol HFA INHALER* [Ventolin HFA Inhaler*] 1 - 2 puff INH Q4H #1 mdi MDD 8 07/26/19 [Rx] Azithromycin TAB* [Zithromax TAB*] 250 mg PO DAILY #6 tab 07/26/19 [Rx] Inhaler, Assist Devices [Aerochamber Mv] 1 mis XX Q6HR #1 mis 07/26/19 [Rx] PMH/Surg Hx/FS Hx/Imm Hx - Additional Past Medical History Additional PMH: PAST MEDICAL HISTORY- CHRONIC and RECURRENT HEALTH PROBLEM LIST REVIEWED. Information relevant to present complaint: VISIT HISTORY REVIEWED. MEDICATIONS & ALLERGIES REVIEWED. HYPERTENSION STATUS: no treatment FAMILY HISTORY: Positive for: cardiovascular disease SOCIAL HISTORY: Smoker: yes Employment: multimedia producer Previously Healthy: Yes Other History Of: Negative For: Anticoagulant Therapy - Surgical History Surgical History: None - Family History Known Family History: Positive: Cardiac Disease, Hypertension - Social History Alcohol Use: Weekly Alcohol Amount: "on the weekends, but not a lot" - pt confirms ~a six-pack on weekends Substance Use Type: Marijuana Substance Use Comment - Amount & Last Used: "I smoked a little bit this last weekend for the first time since my teens" Smoking Status (MU): Current Some Day Smoker Type: Cigarettes, Smokeless Tobacco Amount Used/How Often: 1 can every 2 days Have You Smoked in the Last Year: Yes Household Exposure Type: Cigarettes - Immunization History Most Recent Influenza Vaccination: 2017 Most Recent Pneumonia Vaccination: never Review of Systems All Other Systems Reviewed And Are Negative: Yes Respiratory: Positive: Cough Cardiovascular: Positive: Negative Gastrointestinal: Positive: Negative Is Patient Immunocompromised?: No Physical Exam - Summary Physical Exam Summary: Appearance: The patient is well-appearing, is in no pain or distress, and is well-nourished. Eyes: Conjunctiva are clear. Pupils are equal and reactive to light and accommodation. Extra ocular muscle movement is intact. ENT: The hearing is grossly normal, the pharynx is normal, and the TMs are normal. There is no muffled or hoarse voice. No stridor. Neck: The neck is supple and there is no lymphadenopathy. Respiratory: The chest is non-tender to palpation and without crepitus. The lungs are clear, but there is an extended expiratory phase. Cardiovascular: Heart sounds reveal a regular rate and rhythm. There are no clicks, rubs or murmurs. There are no carotid bruits or thrills. Circulation is grossly intact. Abdomen: The abdomen is soft and nontender. There is no organomegaly. Bowel sounds are present and within normal limits. No point tenderness at McBurneys point. No CVA tenderness. Musculoskeletal: Strength is intact. The patient moves all extremities. Neurological: The patient is alert. Motor and sensory are examination grossly intact. Speech is normal. Psychological: The patient displays age appropriate behavior, and is conversant. GCS=15. Skin: Negative for rashes. 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 Patient is requesting coronavirus testing. Physical exam shows an extended expiratory phase with a rare wheeze. Otherwise the examination is within normal limits with the exception of a blood pressure of 136/95. The patient is not on antihypertensive medications. My diagnosis is bronchitis with bronchospasm. I will start him on Zithromax, albuterol and a spacer. He'll be tested for coronavirus. He will stay at home until the results of that test is available. The patient knows to return for further evaluation if his cough, fever or chest discomfort should worsen. - Differential Dx/Diagnosis Differential Diagnosis/HQI/PQRI: Bronchitis, Upper Respiratory Infection, Other - Covid 19 Provider Diagnosis: Bronchospasm with bronchitis, acute Discharge ED - Sign-Out/Discharge Documenting (check all that apply): Patient Departure All imaging exams completed and their final reports reviewed: No Studies - Discharge Plan Condition: Stable Disposition: HOME Prescriptions: Albuterol HFA INHALER* [Ventolin HFA Inhaler*] 1 - 2 puff INH Q4H #1 mdi MDD 8 Azithromycin TAB* [Zithromax TAB*] 250 mg PO DAILY #6 tab Inhaler, Assist Devices [Aerochamber Mv] 1 mis XX Q6HR #1 mis Forms: *Work Release Referrals: Afshin López PA [Primary Care Provider] - Additional Instructions: WE DISCUSSED: PLEASE SEEK CARE AT THE EMERGENCY DEPARTMENT IF SYMPTOMS WORSEN OR IF NEW SYMPTOMS DEVELOP. FOLLOW UP WITH YOUR PRIMARY CARE PHYSICIAN IF CONDITION CONTINUES BEYOND 3 DAYS WITHOUT IMPROVEMENT. YOUR DIAGNOSIS IS:bronchitis with bronchospasm YOUR PRESCRIPTION RECOMMENDATION IS:Zithromax, albuterol and spacer OTHER INSTRUCTIONS: Hypertension Discharge Instructions:136/95 Your blood pressure reading today was 136/95, indicating HYPERTENSION. Follow- up with your primary care provider within 4 weeks for blood pressure check and appropriate recommendations and treatment, as needed. FOR PAIN AND/OR SLEEP: For pain: Ibuprofen (Motrin and other brand names) 400-600mg PLUS acetaminophen (Tylenol and other brand names) 500mg - 1000mg every 8 hours. you've been tested for coronavirus. Stay home until the results of this test is returned and it is negative. I've given you a note. Other information: The most important goal is to liquefy all the phlegm and mucus, and get it out of your head and chest. For sore throat, it is important to keep throat moist and protected. Any illness causing cough, congestion, sore throat or sinus discomfort can be helped by doing the following: To clear you head, sinuses and chest of congestion: stand under a warm shower stream to loosen secretions. Use a vaporizor. Stay away from smoke or irritants. Use saline nasal spray or Neti Pot to keep the flow of mucus from your nostrils and sinuses. For sore throat: drink lots of warm fluids. Tea and honey is particularly useful because the honey can coat protect your throat. Gargle with warm water with 1/2 teaspoon of salt per 8 ounces of water. Gargle for a few seconds and spit out. Repeat every three hours. Keep your throat protected with lozenges. Don't let your throat dry out. Use a vaporizor at night. Make sure to check with your pharmacist if you are taking other prescription medication prior to taking any over the counter medications listed here. DECONGESTANTS: helps relieve stuffiness and clears sinuses. Pseudoephedrine ( Sudafed or generic) is effective but you need to ask the pharmacist for it because it may be kept behind the counter. ANTIHISTAMINES: are not helpful in many colds and flus because they can worsen sore throat, dry eyes and mouth and cause drowsiness. Examples are diphenhydramine, doxylamine and chlorpheniramine. They can help dry you out if you are having profuse, clear drainage from the nose or post-nasal drip. EXPECTORANTS: helps thin mucous in the nose and chest, making it easier to clear the fluid out. Expectorants are in most combination cough/cold remedies and should be taken with plenty of water. Guaifenesin is the most common expectorant and it comes in pill or liquid form. Mucinex is an extended release form of guaifenesin. COUGH SUPPRESSANT: reduces the body's cough reflex. Dextromethorphan is in over the counter products, but sometimes narcotics such as codeine or hydrocodone are used to suppress cough. SPECIFIC MEDICATIONS: The following medicines may help: To help with cough: DEXTROMETHORPHAN (Vicks, Robitussin, Nyquil and other brands) To help break up phlegm: GUAIFENESIN (Mucinex, Robitussin, other brands) To help clear congestion in the nose and sinuses: PSEUDOEPHEDRINE (Sudafed, Dimetapp, other brands) To help clear nasal congestion: AFRIN NASAL SPRAY: 2-3 SPRAYS PER NOSTRIL, TWICE A DAY FOR TWO DAYS ONLY. FLONASE: (or other steroid nasal sprays) can help if your running nose is caused by an allergy. It can help relieve congestion. It is used once a day in each nostril. Check the dose with your pharmacist. FOLLOW-UP: re-check in 10 days if you are not improving. Return here or see your caregiver. RE-CHECK SOONER if you have increased pain, temperature, cough, sinus symptoms, or difficulty breathing or swallowing. Go directly to Emergency Department if symptoms are severe. - Billing Disposition and Condition Condition: STABLE Disposition: Home
[2019-07-26 08:21] LABS: Influenza A Molecular Negative (Negative); Influenza B Molecular Negative (Negative)
== END 2019-07-26 09:00 | disposition home or self-care (01) ==
LOC: UCEAST 07:34
DX: J20.9 Acute bronchitis, unspecified (principal); Z91.011 Allergy to milk products; Z91.09 Other allergy status, other than to drugs and biological substances; Z72.0 Tobacco use
CPT/HCPCS: 87651; 99213; G0463; U0002